=== PATIENT | male | born 1960 | race Caucasian/White ===

== ENCOUNTER 2017-06-27 08:05 | Day surgery (SDC) | payer MEDICAID ==
[2017-06-27] VITALS (15 sets, daily range): BP systolic 77–179; BP diastolic 50–121; PULSE 56–70; RESP 14–16; Ht 172.7 cm; Wt 80.0 kg
[~2017-06-27] VITALS: Ht 172.7 cm; Wt 80.0 kg
[2017-06-27] MEDS ORDERED: CARV3.1260 PO (08:38)
[2017-06-27] MEDS ORDERED: DOCU-144 PO (08:39)
[2017-06-27] MEDS ORDERED: LISI10TA2 PO (08:39)
[2017-06-27] MEDS ORDERED: ASPI-664 PO (08:39)
[2017-06-27] MEDS ORDERED: SENN-53 PO (08:40)
[2017-06-27] MEDS ORDERED: FAMO20TA18 PO (08:40)
[2017-06-27] MEDS ORDERED: AMLO2.5T78 PO (08:40)
[2017-06-27] MEDS ORDERED: SIMV10TA PO (08:41)
[2017-06-27] MEDS ORDERED: GABA300C16 PO (08:41)
[2017-06-27 09:11] LABS: BASOPHILS % 0.2 % (0.0-2.0); EOSINOPHILS % 0.5 % (0.0-7.0); HEMATOCRIT 41.2 % (42.0-52.0); HEMOGLOBIN 14.3 g/dl (14.0-18.0); LYMPHOCYTES # 2.4 10^3/ul (0.8-2.9); MEAN CORPUSCULAR HEMOGLOBIN 32.4 pg (29.0-33.0); MEAN CORPUSCULAR HGB CONC 34.7 g/dl (32.0-37.0); MEAN CORPUSCULAR VOLUME 93.2 fl (82.0-101.0); MEAN PLATELET VOLUME 9.5 fl (7.4-10.4); MONOCYTE # 0.7 10^3/ul (0.3-0.9); MONOCYTES % 9.1 % (0.0-11.0); NEUTROPHIL # 4.7 10^3/ul (1.6-7.5); NEUTROPHILS % 58.4 % (39.0-77.0); PLATELET COUNT 191 10^3/UL (140-415); RED BLOOD COUNT 4.42 10^6/ul (4.70-6.10); RED CELL DISTRIBUTION WIDTH 13.2 % (11.5-14.5); WHITE BLOOD COUNT 8.1 10^3/ul (4.8-10.8)
[2017-06-27 09:29] LABS: CHOL/HDL RATIO 4.1 RATIO
--- NOTE | 2017-06-27 09:35 | RADRPT ---
PROCEDURE: Chest x-ray CLINICAL INDICATION: Preop TECHNIQUE: Chest single view COMPARISON: None FINDINGS: There is mild cardiomegaly. The pulmonary vessels are normal in caliber. The lungs are clear. The costophrenic angles are sharp. The visualized bony thorax is unremarkable. IMPRESSION: No acute cardiopulmonary disease. RPTAT: HH .Curly Rosenbaum MD, Date Time Electronically viewed and signed by .Curly Rosenbaum MD, MD on 06/27/2017 09:34 .W/
[2017-06-27 09:36] LABS: CALCIUM 9.3 mg/dl (8.4-10.2); CREATININE 1.07 mg/dl (0.61-1.24); POTASSIUM 4.4 mmol/L (3.5-5.1)
[2017-06-27 09:46] LABS: INR 0.91; PARTIAL THROMBOPLASTIN TIME 27.9 Sec (25.0-35.0); PROTIME 12.3 Sec (12.2-14.2)
[2017-06-27] MEDS ORDERED: IODIXANOL LOCM 100 ML BTL ONE (10:29)
[2017-06-27] MEDS ORDERED: LIDOCAINE 1% (MDV) 20 ML INJ ONE (10:29)
[2017-06-27] MEDS ORDERED: HEPARIN 1000 UNITS/ML 10 ML INJ ONE (10:29)
[2017-06-27] MEDS ORDERED: FENTAnyl 50 MCG/ML VIAL ONE (10:29)
[2017-06-27] MEDS ORDERED: MIDAZOLAM 1 MG/ML 2 ML INJ ONE (10:29)
[2017-06-27] MEDS ORDERED: VERAPAMIL 5 MG INJ ONE (10:29)
[2017-06-27] MEDS ORDERED: HEPARIN 1000 UNITS/NS (A-LINE) 1,000 ML ONE (10:29)
[2017-06-27] MEDS ORDERED: SOD CHLORIDE 0.9% 1,000 ML IV SCH (11:26)
[2017-06-27] MEDS ORDERED: NITROGLYCERIN (IC) 100 MCG/ML INJ ONE (11:28)
--- NOTE | 2017-06-27 11:29 | SIPON ---
Date/Time of Note Date/Time of Note DATE: 06/27/17 TIME: 11:28 Operative Report Preoperative Diagnosis 1.Cardiomyopathy 2.abnl mpi Postoperative Diagnosis 1.non-obstructive cad Operation/Procedure Performed 1.[facility] Surgeon see signature line news assistant Edvin Anesthesia: moderate sedation Estimated blood loss: minimal Transfusion Required none Specimen NA Grafts/Implants none Complications none CLAUDIA SCHMITT Jun 27, 2017 11:29
[2017-06-27] MEDS ORDERED: AL HYDROX/MG HYDROX/SIMETH 30 ML CUP PO PRN (11:30)
[2017-06-27] MEDS ORDERED: ACETAMINOPHEN 325 MG TAB PO PRN (11:30)
[2017-06-27] MEDS ORDERED: ONDANSETRON 4 MG INJ IV PRN (11:30)
[2017-06-27] MEDS ORDERED: morphine 2 MG INJ IV PRN (11:30)
[2017-06-27] MEDS ORDERED: AMLODIPINE 5 MG TAB PO ONE (11:30)
[2017-06-27] MEDS ORDERED: hydrALAzine 20 MG INJ ONE (11:39)
--- NOTE | 2017-06-27 12:29 | CARRPT ---
DATE OF PROCEDURE: 06/27/2017 TYPE OF PROCEDURE: 1. Left heart catheterization. 2. Coronary angiography. 3. Moderate conscious sedation. ATTENDING PHYSICIAN: Dr. Claudia Chao. REFERRING PHYSICIAN: Dr. Maicol Flood. INDICATION: Cardiomyopathy with decreased left ventricular ejection fraction and transient ischemic dilatation on high risk marker for multivessel cardiovascular disease. TYPE OF ANESTHESIA: Conscious and local. BRIEF HISTORY: Mr. Pena is a 57-year-old male with history of hypertension, dyslipidemia, prior CVA with left-sided weakness, who initially presented with shortness of breath and underwent a cardiac stress test showing positive transient ischemic dilatation with moderate to severely depressed LV systolic function. Given these findings, the patient referred for and presents today in order to undergo left heart catheterization to assess for the possibility of significant obstructive coronary symptoms of shortness of breath , decreased EF. PROCEDURE: After informed consent was obtained, the patient was brought to the [facility] where his right radial area was prepped and draped in the usual sterile fashion. Lidocaine 2% was given in order to achieve adequate local anesthesia. Using modified Seldinger technique, the radial artery was cannulated and 6-Spanish JL3.5 catheter was used to cannulate the left main coronary ostium with contrast injection Multiple views of the left coronary arterial system were obtained. JL3.5 inserted over a guidewire and a JR4 was used to cannulate the right coronary arterial ostium. With contrast injection, multiple views of the right coronary arterial system were obtained. JR4 was removed over a guidewire and a 6-Spanish pigtail was passed down the ascending aorta into the LV. Left ventricular end- diastolic pressure was measured. Using a power injector, 20 mL of contrast were injected opacifying the left ventricle, it was pulled back across the aortic valve to assess for significant gradient, which there was not and removed. Subsequently, this completed the procedure, patient's sheath was removed and a TR band was applied. There were no noted complications. FINDINGS: Coronary angiography: Left main 5 mm, no significant stenoses. Circumflex proximally is a 4 mm vessel and its mid portion has a 20-30% stenosis. The remainder of the circumflex is free of significant focal stenoses. There is a mid-branching obtuse marginal 2 mm vessel with no significant focal stenoses. The LAD proximally is a 4 mm vessel and it has a 20-30% stenosis in its mid portion. The remainder of the LAD is free of significant focal stenoses around the apex. There is a proximal branching diagonal approximately 2 mm vessel with an ostial 20% stenosis. The right coronary artery proximally is a 4 mm vessel, has an ostial 30% stenosis. The remainder of the right coronary artery is free of significant focal stenoses. It gives off a 2 mm PDA and a 2.5 mm posterolateral branch with the PDA having an eccentric-appearing 50% stenosis. Left ventriculogram revealed a left ventricular ejection fraction of approximately 45% with a mild anterolateral hypokinesis, left end-diastolic pressure of 14 pre-LV gram is 16 post-LV gram. No significant aortic stenosis by gradient. TOTAL FLUOROSCOPY TIME: 3.4 minutes. TOTAL CONTRAST: 120 mL. IMPRESSION: 1. Moderate nonobstructive coronary artery disease. 2. Mildly depressed LV systolic function with wall motion abnormalities as above. 3. Normal left heart filling pressures. 4. No significant aortic stenosis by gradient. RECOMMENDATIONS: In light of the procedure findings at this time would: 1. Maximize medical management. 2. Aggressive risk factor reduction. 3. The patient will be readmitted to same day surgery center for post-cath observation and continued management of his current symptoms with probable discharge later this afternoon. Dictated By: CLAUDIA RIVERA/ALBERTO Conf#: [id number] DID#: [id number] CC: MAICOL FLOOD MD;*EndCC* MTDD
--- NOTE | 2017-06-28 15:13 | RADRPT ---
Vent Rate: 47 bpm RR Interval: 0 msec MN Interval: 200 msec QRS Duration: 134 msec QT Interval: 482 msec QTC Interval: 426 msec P-R-T [place]: 35 - -16 - 0 degrees Marked sinus bradycardia with occasional premature ventricular complexes Nonspecific intraventricular block Cannot rule out Septal infarct , age undetermined T wave abnormality, consider inferolateral ischemia Abnormal ECG Electronically Signed By: Henry Egnland [id number]
== END 2017-06-27 15:30 | disposition home or self-care (01) ==
LOC: CCL 08:05 → SDS 08:05 → CCL 15:30
PROVIDERS: ATTEND Internal Medicine
DX: I25.10 Atherosclerotic heart disease of native coronary artery without angina pectoris (principal); R94.39 Abnormal result of other cardiovascular function study
CPT/HCPCS: 71010; 80048; 80061; 85025; 85610; 85730; 93005; 93458; C1887; J0360; J1644; J2250; J3010; Q9967; Z7610

== ENCOUNTER 2017-11-15 11:24 | Emergency (ER) | END 2017-11-15 14:02 | disposition home or self-care (01) ==